=== PATIENT | female | born 1950 | race Caucasian/White ===

== ENCOUNTER 2017-09-29 16:20 | Day surgery (SDC) | payer MEDICARE ==
[~2017-09-29] VITALS: Ht 172.7 cm; Wt 89.4 kg
--- OUTSIDE RECORDS SUMMARY | 2017-09-29 16:24 | XMS REPORT ---
Author Author AVTAR PIÑA Organization [facility] Address [address] [place] [address] Care Team Providers Care Supervisor Wound Name Role Phone AVTAR PIÑA Unavailable PROBLEMS Unknown Problems ALLERGIES No Information ENCOUNTERS Encounter Location Date Diagnosis [facility] [address] [facility] [id number], [place] [address] Dec, 2016 Breast cancer screening Z12.31 [facility] [address] [facility] [id number], [place] [address] Dec, Weakness R53.1 ; History of Lyme disease Z86.19 and Routine adult health maintenance Z00.00 IMMUNIZATIONS No Known Immunizations SOCIAL HISTORY Never Assessed REASON FOR VISIT Dizziness, wanting to get blood work done, swollen place under right armpit--Patricio Montiel MA PLAN OF CARE Activity Details Follow Up prn Reason: VITAL SIGNS Height 68 in 2017-01-15 Weight 204.8 lbs 2017-01-15 Temperature 98.8 degrees Fahrenheit 2017-01-15 Heart Rate 90 bpm 2017-01-15 Respiratory Rate 18 2017-01-15 BMI 31.14 kg/m2 2017-01-15 Blood pressure systolic 142 mmHg 2017-01-15 Blood pressure diastolic 90 mmHg 2017-01-15 MEDICATIONS Medication Instructions Dosage Frequency Start Date End Date Duration Status Hydrocodone-Acetaminophen 5-325 MG Orally every 6 hrs 1 tablet as needed 6h Active Clarithromycin 500 MG Orally every 12 hrs 1 tablet 12h Active RESULTS Name Result Date Reference Range CBC 2017-01-15 WBC 6.1 3.4-10.8 RBC 4.55 3.77-5.28 Hemoglobin 14.3 11.1-15.9 Hematocrit 42.4 34.0-46.6 MCV 93 79-97 MCH 31.4 26.6-33.0 MCHC 33.7 31.5-35.7 RDW 13.9 12.3-15.4 Platelets 285 150-379 Neutrophils 65 Not Estab. Lymphs 23 Not Estab. Monocytes 9 Not Estab. Eos 2 Not Estab. Basos 1 Not Estab. Neutrophils (Absolute) 3.9 1.4-7.0 Lymphs (Absolute) 1.4 0.7-3.1 Monocytes(Absolute) 0.6 0.1-0.9 Eos (Absolute) 0.1 0.0-0.4 Baso (Absolute) 0.1 0.0-0.2 Immature Granulocytes 0 Not Estab. Immature Grans (Abs) 0.0 0.0-0.1 CMP 2017-01-15 Glucose, Serum 86 65-99 BUN 11 8-27 Creatinine, Serum 0.70 0.57-1.00 eGFR If NonAfricn Am 91 >59 eGFR If Africn Am 105 >59 BUN/Creatinine Ratio 16 12-28 Sodium, Serum 144 134-144 Potassium, Serum 4.2 3.5-5.2 Chloride, Serum 101 96-106 Carbon Dioxide, Total 26 18-29 Calcium, Serum 9.9 8.7-10.3 Protein, Total, Serum 6.7 6.0-8.5 Albumin, Serum 4.3 3.6-4.8 Globulin, Total 2.4 1.5-4.5 A/G Ratio 1.8 1.2-2.2 Bilirubin, Total 0.4 0.0-1.2 Alkaline Phosphatase, S 115 39-117 AST (SGOT) 21 0-40 ALT (SGPT) 16 0-32 CRP 2017-01-15 C-Reactive Protein, Quant 16.6 0.0-4.9 PROCEDURES Procedure Date Ordered Result Body Site LAB NOT BILLED BY [employer] Jan 15, 2017 VENIPUNCT, ROUTINE* Jan 15, 2017 [facility] VISIT NEW PATIENT Jan 15, 2017 INSTRUCTIONS MEDICATIONS ADMINISTERED No Known Medications MEDICAL (GENERAL) HISTORY Type Description Date Medical History Lyme disease
[2017-09-29 16:30] VITALS: BP 189/103
--- NOTE | 2017-09-29 16:55 | History & Physical-Surgical ---
History of Present Illness History of Present Illness Reason for visit/HPI I was called by ER, regarding a pt who was at the [facility] Urgent care. Pt had CT read by the radiologist as Acute Appendicitis. I agreed to direct admit pt as a [facility] pt. HPI: Pt states yesterday after eating she was lying on the couch and all of a sudden felt a pain in the RLQ; "felt like I got kicked". She states the pain stayed in same spot and today it is radiating to the back. Pt has never had pain like this before; laying still helped and moving made pain worse. Pt describes pain as 6-7 out of 10 on a 1-10 scale. Sharp, constant stabbing pain. She has not eaten anything since last night. Date of Admission 09/29/2017 Time Seen by Provider: 16:31 I consulted on this patient on 09/29/17 16:49 Attending Physician Elder Jerome DO Admitting Physician No,Local Physician Consult Allergies and Home Medications Allergies Coded Allergies: Adhesive Tape (Verified Allergy, Mild, 09/29/17) Uncoded Allergies: contrast dye (Allergy, Mild, 09/29/17) Patient Home Medication List Home Medication List Reviewed: Yes (Pt states she does not take any meds except for vitamins) Past Idyzmtg-Cddmkt-Vzpurc Hx Patient Social History Alcohol Use: Denies Use Recreational Drug Use: No Smoking Status: Never a Smoker Recent Foreign Travel: No Contact w/Someone Who Travel: No Recent Infectious Disease Expo: No Seasonal Allergies Seasonal Allergies: No Surgeries Surgeries: Abdominal (Laparoscopic) Respiratory History of Respiratory Disorde: No (but has trouble with cologne or cleaning products aggravating her breathing) Cardiovascular History of Cardiac Disorders: No Neurological History of Neurological Disord: Yes (Lyme disease has caused some neurologic symptoms and she has to walk with cane) Neurological Disorders: Neuropathy Reproductive System : No Genitourinary History of Genitourinary Disor: No Gastrointestinal History of Gastrointestinal Di: No Musculoskeletal History of Musculoskeletal Dis: Yes Musculoskeletal Disorders: Fibromyalgia Endocrine History of Endocrine Disorders: No HEENT History of HEENT Disorders: No Loss of Vision: Denies Hearing Impairment: Denies Cancer History of Cancer: No Psychosocial History of Psychiatric Problem: No Integumentary History of Skin or Integumenta: No Blood Transfusions History of Blood Disorders: No Family Medical History Significant Family History: CAD Under 55 Years Old, Hypertension Constitutional: chills; No diaphoresis; weakness EENTM: No blurred vision, No double vision, No mouth pain, No mouth swelling, No throat swelling Respiratory: No cough, No dyspnea on exertion Cardiovascular: No chest pain, No edema, No palpitations Gastrointestinal: RLQ; No hematemesis; loss of appetite; No nausea, No vomiting Genitourinary: No dysuria, No frequency, No hematuria Musculoskeletal: joint pain, joint swelling, muscle pain, muscle stiffness, muscle cramps, muscle weakness Skin: No change in color, No change in hair/nails Psychiatric/Neurological: Denies Anxiety, Denies Depressed, Denies Headache, Denies Seizure pt denies any abnormal bruising or bleeding, no heat or cold intolerance Physical Exam Vital Signs Capillary Refill : Height, Weight, BMI Height: ', " Weight: lbs oz, kg Method: ,BMI General Appearance: WD/WN, Mild Distress Eyes: Bilateral Eye PERRL, Bilateral Eye EOMI HEENT: Pharynx Normal, Moist Mucous Membranes; No Pale Conjunctivae (L), No Pale Conjunctivae (R), No Pharyngeal Erythema, No Scleral Icterus (L), No Scleral Icterus (R) Neck: Full Range of Motion, Normal Inspection, Non Tender, Supple Respiratory: Chest Non Tender, Lungs Clear, Normal Breath Sounds, No Accessory Muscle Use, No Respiratory Distress Cardiovascular: Regular Rate, Rhythm, No Edema, No Murmur, Normal Peripheral Pulses Gastrointestinal: Normal Bowel Sounds, No Organomegaly, Soft, Guarding (RLQ); No Mass Rectal: Deferred Back: No CVA Tenderness, No Vertebral Tenderness Extremity: Normal Capillary Refill, Normal Inspection, Normal Range of Motion, Non Tender, No Calf Tenderness Neurologic/Psychiatric: Alert, Oriented x3, Normal 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 Discussed the procedure with pt and her family; risks and complications not limited to pain, bleeding, infection, scar, damage to bowel, need for open procedure or other procedure. All questions answered to her satisfaction. I needed to consult on this pt before going to OR to assess her ability to go to the OR and to explain my plan and risks prior to her aggreeing to surgery. ELDER JEROME DO Sep 29, 2017 16:55
[2017-09-29] MEDS ORDERED: fentaNYL INJECTION 100 MCG/2 ML AMP ONE (16:59)
[2017-09-29] MEDS ORDERED: MIDAZOLAM 2 MG/2 ML (VERSED) VIAL ONE (16:59)
[2017-09-29] MEDS ORDERED: LACTATED RINGERS 1,000 ML IV ONE (17:03)
[2017-09-29] MEDS ORDERED: ONDANSETRON 4 MG/2 ML (SDV) Z0FRAN ONE ×2 (17:07→17:50)
[2017-09-29] MEDS ORDERED: LIDOCAINE PF 2% 5 ML (XYLOCAINE) VIAL ONE (17:07)
[2017-09-29] MEDS ORDERED: SEVOFLURANE (ULTANE) 15 ML INHAL SOLN ONE (17:07)
[2017-09-29] MEDS ORDERED: DEXAMETHASONE 10 MG/ML (DECADRON) 1 ML VIAL ONE (17:07)
[2017-09-29] MEDS ORDERED: ROCURONIUM 10 MG/ML 5 ML SYRINGE IV ONE (17:07)
[2017-09-29] MEDS ORDERED: proPOfol 200 MG/20 ML (DIPRIVAN) VIAL IV ONE (17:07)
[2017-09-29] MEDS ORDERED: LIDOCAINE/EPI 1%-1:200,000 (XYLOCAINE) 10 ML VIAL ONE (17:13)
[2017-09-29] MEDS ORDERED: ceFAZolin 2 GM IV Premixed 50 ML IV ONE (17:15)
[2017-09-29] MEDS ORDERED: ceFAZolin 1,000 MG (ANCEF) VIAL ONE (17:16)
[2017-09-29] MEDS ORDERED: LACTATED RINGERS 1,000 ML IV PRN (17:34)
[2017-09-29] MEDS ORDERED: NEOSTIGMINE 1 MG/ML 5 ML SYRINGE ONE (17:40)
[2017-09-29] MEDS ORDERED: GLYCOPYRROLATE 0.2 MG/ML (ROBINUL) 2 ML VIAL ONE (17:40)
[2017-09-29] MEDS ORDERED: ONDANSETRON 4 MG/2 ML (SDV) Z0FRAN IVP PRN (17:45)
[2017-09-29] MEDS ORDERED: HYDROmorphone 1 MG/ML (DILAUDID) 1 ML SYRINGE IV PRN (17:45)
[2017-09-29] MEDS ORDERED: morphine INJ 10 MG/ML 1ML (SYR OR VIAL) IVP PRN (17:45)
[2017-09-29] MEDS ORDERED: morphine INJ 10 MG/ML 1ML (SYR OR VIAL) ONE (17:50)
--- NOTE | 2017-09-29 17:51 | Progress Note-Post Operative ---
Post-Operative Progess Note Surgeon (s)/Maintenance Shop Welder (s) Surgeon SEFERINO BULLARD DO Maintenance Shop Welder: none Pre-Operative Diagnosis acute appy Post-Operative Diagnosis same Procedure & Operative Findings Date of Procedure 09/29/17 Procedure Performed/Findings lap appy Anesthesia Type GET Estimated Blood Loss Estimated blood loss (mL): scant Specimens/Packing Specimens Removed appy fibrinous material SEFERINO BULLARD DO Sep 29, 2017 17:51
[2017-09-29] MEDS ORDERED: ACHD5005 PO (17:52)
--- NOTE | 2017-09-29 17:54 | Discharge Inst-Surgical ---
Discharge Inst-Surgical Depart Medication/Instructions New, Converted or Re-Newed RX: RX Given to Pt/Family Patient Instructions Follow up Appt: Make appointment for 1 week. [phone] Instructions: No lifting greater than 10 pounds. No strenuous activity. May shower in 24 hours, no tub bath or soaking. Use incentive spirometer at home as directed. No Smoking Skin/Wound Care: May remove bandages. You need to leave the Dermabond on over incision it will fall off on its own. Symptoms to Report: -Appetite Changes, Extremity Discoloration, Numbness/Tingling, Swelling Increased, Bleeding Excessive, Eyesight Changes, Pain Increased, Urine Color Change, Constipation(Persistent), Fever over 101 degree F, Pain/Pressure in chest, Urinating Difficulty, Cough Up/Vomit Blood, Heart Beat Irreg/Pounding, Pain/Pressure in jaw, Vaginal Bleeding Increase, Cramps in feet or legs, Lightheadedness, Pain/Pressure in shoulder, Diarrhea(Persistent), Memory Changes Suddenly, Questions/Concerns, Weight gain consecutive days, Dizziness/ Fainting, Nausea/Vomiting, Shortness of Breath, Weight gain over 2 pounds If questions or concerns contact your physician Or seek help at emergency department. Activity Activity as Tolerated: Yes Walking Assistive Device: Cane Activity Instructions: Avoid Stress to Incision Driving Instructions: No Driving/Refer to Dr. Crane Discharge Diet: No Restrictions Diet After 24 Hours: Clear Liquid if Nauseous If Any Problems/Questions/Issu: Contact Your Physician, Go to Emergency Room Skin/Wound Care Infection Signs and Symptoms: Increased Redness, Foul Odor of Wound, Increased Drainage, Skin Itchy or Has a Rash, Increased Swelling, Temperature Above 101 F Wound Care Comment: heating pad to shoulder or neck tonight for pain Bathing Instructions: Shower Stitches/Juan/Dermabond Dis: Dermabond Ice Pack: Ice On and Off Site (as needed for pain) SEFERINO BULLARD DO Sep 29, 2017 17:54
--- NOTE | 2017-09-29 18:32 | OPERATIVE REPORT ---
DATE OF SERVICE: PREOPERATIVE DIAGNOSIS: Acute appendicitis. POSTOPERATIVE DIAGNOSIS: Acute appendicitis. PROCEDURE: Laparoscopic appendectomy. SURGEON: Elder Jerome DO. ABRASIVE WATER JET CUTTER OPERATOR: None. ANESTHESIA: General endotracheal tube. SPECIMEN: Appendix. BLOOD LOSS: Scant. FLUIDS: Per anesthesia. POSTOPERATIVE CONDITION: Stable. INDICATION FOR PROCEDURE: The patient is a 67-year-old female who has a right lower quadrant pain and urgent care sent her for a CAT scan, which was read as acute appendicitis. FINDINGS: The patient had acute appendicitis with inflammation to the large intestine, but otherwise, looked good, possibly microperforation. There is also some necrotic appendix, but denies any purulent fluid. There was some fibrinous material, which was also sent for pathology. PROCEDURE NOTE: After informed consent was obtained, the patient was brought to the operating room, placed on the operating table in supine position. She was sterilely prepped and draped in normal fashion. Local lidocaine was used to infiltrate the skin above the umbilicus and made incision with #11 blade, carried down through skin and subcutaneous tissue, then deepened down to subcutaneous tissue with Bovie electrocautery down to the fascia. Fascia was incised with Bovie electrocautery and bluntly entered the abdomen, swept a finger around, placed 0 Vicryl [id number] suture, then placed 11 mm trocar port under direct visualization. Created pneumoperitoneum and then placed 2 more ports in normal fashion using local lidocaine, 11 blade for stab incision and the VersaStep system, all done under direct visualization, one suprapubically and one in the left lower quadrant. The patient then placed slightly Trendelenburg and rotated left. Upon entry, noted a lot of inflammation and erythema in the right lower quadrant around the cecum and terminal ileum. Able to grasp this area. Started pushing things around and then we pulled the appendix off of the cecum. One area was like almost necrotic black tissue, but did not look like it perforated, able to start coming across the mesoappendix with LigaSure, clamping, coagulating and transecting until the appendix was attached only to the cecum, then switched to a 5 mm camera, placed Endo-GIANLUCA into the abdomen, placed across the base of appendix, clamped and fired, thereby transecting the appendix, placed a bag in the abdomen, placed the appendix in the bag and removed through the supraumbilical incision. Placed the port back in the abdomen, copiously irrigated with normal saline, suctioned this out, looked around, no obvious pathology, no purulent fluid. Took a picture of the gallbladder as well as the right ovary and uterus, could not see left ovary and then elected to place the patient in supine, removed all ports under direct visualization, allowed pneumoperitoneum to escape, closed supraumbilical incision, closed the fascia with 0 Vicryl suture previously placed. Copiously irrigated all incisions with normal saline, closing the 2 small 5 mm incisions with a single interrupted 4-0 undyed Monocryl subcuticular stitch, closed supraumbilical incision with 3 interrupted 4-0 undyed Monocryl subcuticular stitch. Area was cleaned and dried. Dermabond was placed as well as Band-Aids. The patient was then transferred to recovery room in stable condition. Sponge, instrument and needle counts were correct at the end of the case. Job ID: [id number] DocumentID: [id number] Dictated Date: 09/29/2017 18:05:37 Software Validation Technician Date: 09/29/2017 18:31:22 Dictated By: DO MEGAN MILLER
[2017-09-29 19:00] VITALS: BP 145/72
[2017-09-29 21:45] VITALS: BP 143/74
--- NOTE | 2017-09-30 16:26 | Anesthesia-General Post-Op ---
General Patient Condition Mental Status/LOC: Same as Preop Cardiovascular: Satisfactory Nausea/Vomiting: Absent Respiratory: Satisfactory Pain: Controlled Complications: Absent Post Op Complications Complications None Follow Up Care/Instructions Patient Instructions None needed. Anesthesia/Patient Condition Patient Condition Patient is doing well, no complaints, stable vital signs, no apparent adverse anesthesia problems. No complications reported per nursing. ANDREW GRIFFITH CRNA Sep 30, 2017 16:26
== END 2017-09-29 21:50 | disposition home or self-care (01) ==
LOC: SDC 16:20 → 4TH 16:38 → SDC 21:50
PROVIDERS: ATTEND Surgery
DX: K35.80 Unspecified acute appendicitis (principal)
CPT/HCPCS: 87070; 87075; 87205; 94664

== ENCOUNTER → 2017-09-29 | Outpatient (CLI) | payer MEDICARE ==
[~2017-09-29] MED LIST: ACHD5005 PO
--- NOTE | 2017-09-29 15:01 | Diagnostic Imaging Report ---
PROCEDURE: CT abdomen and pelvis without contrast. TECHNIQUE: Multiple contiguous axial images were obtained through the abdomen and pelvis without the use of intravenous contrast. DATE: September 29, 2017. COMPARISON: None. INDICATION: 67-year-old female, right lower quadrant pain. FINDINGS: There are limitations for evaluation of the abdominal organs, neoplastic processes, abscess, and limited evaluation of the vasculature relating to the lack of intravenous contrast. The visualized portions of the lung bases are clear. The heart is not enlarged. There is no pericardial effusion. The liver is normal in size and contour. There is cholelithiasis without evidence of acute cholecystitis. There is no intrahepatic or extrahepatic bile duct dilation. The main pancreatic duct is not abnormally dilated. Unremarkable noncontrast appearance of the pancreatic parenchyma. The spleen is normal in size. The adrenal glands are unremarkable. Unremarkable appearance of the renal parenchyma. The urinary collecting systems are not distended. There is no identified renal or ureteral stone. The urinary bladder is underdistended and not well evaluated. There is wall thickening and inflammatory stranding at the level of the lower cecum. The appendix is abnormally dilated with prominent adjacent abnormal inflammatory stranding compatible with acute appendicitis. The intestinal tract is otherwise not distended. There is no free intraperitoneal air. There is no drainable fluid collection. There is no free pelvic fluid. There are atherosclerotic calcifications. There is no identified abnormally enlarged lymph node within the abdomen or pelvis, which meets CT size criteria for adenopathy. There is no identified acute bony abnormality. IMPRESSION: CT ABDOMEN AND PELVIS. 1. Findings compatible with acute appendicitis without evidence of perforation or abscess. There is wall thickening and inflammatory stranding at the level of the lower cecum, which likely relates to the adjacent appendiceal process. 2. Cholelithiasis without evidence of acute cholecystitis. Dictated by: Dictated on workstation # [id number]
== END ==
LOC: RAD 14:29
PROVIDERS: ATTEND Nurse Practitioner Family
DX: K80.20 Calculus of gallbladder without cholecystitis without obstruction (principal); R79.82 Elevated C-reactive protein (CRP); D72.828 Other elevated white blood cell count
CPT/HCPCS: 74176

== ENCOUNTER → 2017-09-29 | Outpatient (CLI) | payer MEDICARE ==
[2017-09-29 12:12] LABS: BASOPHILS % (AUTO) 0 % (0-10); EOSINOPHILS % (AUTO) 0 % (0-10); HEMATOCRIT 41 % (35-52); HEMOGLOBIN 13.6 G/DL (11.5-16.0); LYMPHOCYTES # (AUTO) 1.1 X 10^3 (1.0-4.0); LYMPHOCYTES % (AUTO) 11 % (12-44); MEAN CORPUSCULAR HEMOGLOBIN 32 PG (25-34); MEAN CORPUSCULAR HGB CONC 33 G/DL (32-36); MEAN CORPUSCULAR VOLUME 96 FL (80-99); MEAN PLATELET VOLUME 9.8 FL (7.4-10.4); MONOCYTES # (AUTO) 0.6 X 10^3 (0.0-1.0); MONOCYTES % (AUTO) 6 % (0-12); NEUTROPHILS # (AUTO) 8.4 X 10^3 (1.8-7.8); NEUTROPHILS % (AUTO) 83 % (42-75); PLATELET COUNT 247 10^3/uL (130-400); WHITE BLOOD COUNT 10.2 10^3/uL (4.3-11.0)
[2017-09-29 12:28] LABS: ALANINE AMINOTRANSFERASE 21 U/L (0-55); ALBUMIN 4.1 GM/DL (3.2-4.5); ALKALINE PHOSPHATASE 110 U/L (40-136); BILIRUBIN,TOTAL 0.7 MG/DL (0.1-1.0); BUN/CREATININE RATIO 14; CALCIUM 9.4 MG/DL (8.5-10.1); CARBON DIOXIDE 25 MMOL/L (21-32); CHLORIDE 106 MMOL/L (98-107); CREATININE SERUM 0.79 MG/DL (0.60-1.30); GFR ESTIMATED > 60; GLUCOSE 114 MG/DL (70-105); POTASSIUM 3.6 MMOL/L (3.6-5.0); SODIUM 142 MMOL/L (135-145); TOTAL PROTEIN 6.7 GM/DL (6.4-8.2)
== END ==
LOC: LAB 11:45
PROVIDERS: ATTEND Nurse Practitioner Family
DX: R10.31 Right lower quadrant pain (principal)
CPT/HCPCS: 36415; 80053; 85025; 86141

== ENCOUNTER → 2019-09-18 | Outpatient (CLI) | payer MEDICARE ==
[2019-09-18 17:50] LABS: BASOPHILS % (AUTO) 1 % (0-10); EOSINOPHILS % (AUTO) 1 % (0-10); HEMATOCRIT 42 % (35-52); HEMOGLOBIN 13.6 G/DL (11.5-16.0); LYMPHOCYTES # (AUTO) 1.8 X 10^3 (1.0-4.0); LYMPHOCYTES % (AUTO) 27 % (12-44); MEAN CORPUSCULAR HEMOGLOBIN 32 PG (25-34); MEAN CORPUSCULAR HGB CONC 33 G/DL (32-36); MEAN CORPUSCULAR VOLUME 98 FL (80-99); MEAN PLATELET VOLUME 10.2 FL (7.4-10.4); MONOCYTES # (AUTO) 0.4 X 10^3 (0.0-1.0); MONOCYTES % (AUTO) 6 % (0-12); NEUTROPHILS # (AUTO) 4.3 X 10^3 (1.8-7.8); NEUTROPHILS % (AUTO) 65 % (42-75); PLATELET COUNT 262 10^3/uL (130-400); RED CELL DISTRIBUTION WIDTH 12.9 % (10.0-14.5); WHITE BLOOD COUNT 6.6 10^3/uL (4.3-11.0)
[2019-09-18 18:03] LABS: ALBUMIN 4.2 GM/DL (3.2-4.5); CHLORIDE 105 MMOL/L (98-107); POTASSIUM 3.8 MMOL/L (3.6-5.0); SODIUM 141 MMOL/L (135-145)
[2019-09-18 18:05] LABS: GLUCOSE 92 MG/DL (70-105); TOTAL PROTEIN 7.3 GM/DL (6.4-8.2)
[2019-09-18 18:06] LABS: CARBON DIOXIDE 25 MMOL/L (21-32)
[2019-09-18 18:07] LABS: BILIRUBIN,TOTAL 0.4 MG/DL (0.1-1.0)
[2019-09-18 18:09] LABS: ALKALINE PHOSPHATASE 133 U/L (40-136); CREATININE SERUM 0.82 MG/DL (0.60-1.30); GFR ESTIMATED > 60
[2019-09-18 18:10] LABS: BUN/CREATININE RATIO 12
[2019-09-18 18:12] LABS: ALANINE AMINOTRANSFERASE 13 U/L (0-55)
== END ==
LOC: LAB 17:30
PROVIDERS: ATTEND Family Medicine
DX: R53.83 Other fatigue (principal)
CPT/HCPCS: 36415; 80053; 84439; 84443; 85025

== ENCOUNTER 2021-10-24 09:04 | Emergency (ER) | payer MEDICARE ==
[~2021-10-24] VITALS: Ht 172 cm; Wt 68.9 kg
--- NOTE | 2021-10-24 09:29 | ED General ---
General Chief Complaint: Dizziness/Syncope Stated Complaint: DIZZY - WEAKNESS Source of Information: Patient Exam Limitations: No Limitations History of Present Illness Date Seen by Provider: Oct 24, 2021 Time Seen by Provider: 09:11 Initial Comments Patient is a 71-year-old female who presents to the emergency department today with a chief complaint of dizziness, nausea and vomiting. Patient states that she had an episode of dizziness 2 or 3 weeks ago, she went and had a "cervical adjustment" and that seems to have fixed her dizziness. She states on Sunday she had a return of symptoms. She has been pretty much at rest over the weekend until this morning when she woke up "walking into [place]" and with severe nausea and vomiting. She denies headache. She states over the course of the last several weeks she is had some increasing blurry vision where she feels like her glasses are not working correctly at night and her vision is "off". She denies double vision. No loss of vision. She denies any recent trauma or illness. She has been fighting a tooth infection for quite a while off and on antibiotics. She does not currently have a dentist. She has not taken anything for the dizziness or the nausea and vomiting. No abdominal pain. She has had a little dysuria this morning. No numbness tingling or weakness in her extremities. All other review of systems reviewed and negative except as stated. Timing/Duration: 2-3 Days Severity: Moderate Associated Systoms: Nausea/Vomiting Allergies and Home Medications Allergies Coded Allergies: adhesive tape (Verified Allergy, Mild, 09/29/17) Latex, Natural Rubber (Verified Allergy, Unknown, 09/29/17) Uncoded Allergies: contrast dye (Allergy, Mild, 09/29/17) Patient Home Medication List Home Medication List Reviewed: Yes Hydrocodone Bit/Acetaminophen (Lortab 5 Mg Tablet) 1 Tab Tab, 1 TAB PO Q6H PRN Prescribed by: SEFERINO BULLARD on 09/29/17 2793 Review of Systems Review of Systems Constitutional: see HPI, malaise EENTM: no symptoms reported Respiratory: no symptoms reported Cardiovascular: no symptoms reported Gastrointestinal: nausea, vomiting Genitourinary: dysuria : No Musculoskeletal: no symptoms reported Skin: no symptoms reported Psychiatric/Neurological: Other (dizziness) All Other Systems Reviewed Negative Unless Noted: Yes Past Xcimilt-Auvzbx-Rmpcyz Hx Immunizations Up To Date Tetanus Booster (TDap): Unknown PED Vaccines UTD: Yes Seasonal Allergies Seasonal Allergies: No Past Medical History Abdominal Respiratory: No (but has trouble with cologne or cleaning products aggravating her breathing) Cardiac: No Neurological: Yes Neuropathy Reproductive Disorders: No Female Reproductive Disorders: Denies Sexually Transmitted Disease: No HIV/AIDS: No Genitourinary: No UTI-Chronic Gastrointestinal: No Musculoskeletal: Yes Fibromyalgia Endocrine: No HEENT: No Loss of Vision: Denies Hearing Impairment: Denies Cancer: No Psychosocial: No Integumentary: No Blood Disorders: No Family Medical History CAD Under 55 Years Old, Hypertension Physical Exam Vital Signs Vital Signs - First Documented 10/24/21 09:07 Temp 36.7 Pulse 79 Resp 12 B/P (MAP) 153/86 (108) Pulse Ox 98 O2 Delivery Room Air Capillary Refill : Height, Weight, BMI Height: 5'8.00" Weight: 197lbs. 0.0oz. 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 She did have some worsening dizziness with laying supine) Skin: Normal Color, Warm/Dry Progress/Results/Core Measures Suspected Sepsis SIRS Temperature: Pulse: Respiratory Rate: Laboratory Tests 10/24/21 09:15: White Blood Count 10.5 Blood Pressure / Mean: Laboratory Tests 10/24/21 09:15: Creatinine 0.69, Platelet Count 219 Results/Orders Lab Results Laboratory Tests Test 10/24/21 09:15 10/24/21 10:28 Range/Units White Blood Count 10.5 4.3-11.0 10^3/uL Red Blood Count 4.30 3.80-5.11 10^6/uL Hemoglobin 14.2 11.5-16.0 g/dL Hematocrit 43 35-52 % Mean Corpuscular Volume 100 H 80-99 fL Mean Corpuscular Hemoglobin 33 25-34 pg Mean Corpuscular Hemoglobin Concent 33 32-36 g/dL Red Cell Distribution Width 14.7 H 10.0-14.5 % Platelet Count 219 130-400 10^3/uL Mean Platelet Volume 10.6 9.0-12.2 fL Immature Granulocyte % (Auto) 1 % Neutrophils (%) (Auto) 94 H 42-75 % Lymphocytes (%) (Auto) 5 L 12-44 % Monocytes (%) (Auto) 1 0-12 % Eosinophils (%) (Auto) 0 0-10 % Basophils (%) (Auto) 0 0-10 % Neutrophils # (Auto) 9.8 H 1.8-7.8 10^3/uL Lymphocytes # (Auto) 0.5 L 1.0-4.0 10^3/uL Monocytes # (Auto) 0.1 0.0-1.0 10^3/uL Eosinophils # (Auto) 0.0 0.0-0.3 10^3/uL Basophils # (Auto) 0.0 0.0-0.1 10^3/uL Immature Granulocyte # (Auto) 0.1 0.0-0.1 10^3/uL Neutrophils % (Manual) 91 % Lymphocytes % (Manual) 6 % Monocytes % (Manual) 1 % Band Neutrophils 2 % Blood Morphology Comment NORMAL Sodium Level 141 135-145 MMOL/L Potassium Level 3.8 3.6-5.0 MMOL/L Chloride Level 101 98-107 MMOL/L Carbon Dioxide Level 21 21-32 MMOL/L Anion Gap 19 H 5-14 MMOL/L Blood Urea Nitrogen 17 7-18 MG/DL Creatinine 0.69 0.60-1.30 MG/DL Estimat Glomerular Filtration Rate 93 BUN/Creatinine Ratio 25 Glucose Level 143 H 70-105 MG/DL Calcium Level 9.8 8.5-10.1 MG/DL Urine Color YELLOW Urine Clarity CLEAR Urine pH 6.0 5-9 Urine Specific [place]inosaur >=1.030 1.016-1.022 Urine Protein 1+ H NEGATIVE Urine Glucose (UA) NEGATIVE NEGATIVE Urine Ketones 3+ H NEGATIVE Urine Nitrite NEGATIVE NEGATIVE Urine Bilirubin NEGATIVE NEGATIVE Urine Urobilinogen 0.2 < = 1.0 MG/DL Urine Leukocyte Esterase NEGATIVE NEGATIVE Urine RBC (Auto) NEGATIVE NEGATIVE Urine RBC 0-2 /HPF Urine WBC 2-5 /HPF Urine Squamous Epithelial Cells 2-5 /HPF Urine Crystals PRESENT H /LPF Urine Amorphous Sediment FEW BONNY URATES H /LPF Urine Bacteria FEW H /HPF Urine Casts PRESENT /LPF Urine Hyaline Casts RARE /LPF Urine Mucus SMALL H /LPF Urine Culture Indicated YES My Orders Orders - CASE NEWMAN MD Ct Head Wo (10/24/21 09:23) Ed Iv/Invasive Line Start (10/24/21 09:23) Cbc With Automated Diff (10/24/21 09:23) Basic Metabolic Panel (10/24/21 09:23) Ns Iv 1000 Ml (Sodium Chloride 0.9%) (10/24/21 09:30) Ondansetron Injection (Zofran Injectio (10/24/21 09:30) Ua Culture If Indicated (10/24/21 09:30) Manual Differential (10/24/21 09:15) Urine Culture (10/24/21 10:28) Ns Iv 1000 Ml (Sodium Chloride 0.9%) (10/24/21 12:00) Meclizine Tablet (Antivert Tablet) (10/24/21 12:00) Metoclopramide Injection (Reglan Injecti (10/24/21 12:00) Diphenhydramine Injection (Benadryl Inje (10/24/21 12:00) Medications Given in ED Current Medications Medications Dose Ordered Sig/Yvon Route Start Time Stop Time Status Last Admin Dose Admin Diphenhydramine HCl 25 mg ONCE ONCE IVP 10/24/21 12:00 10/24/21 12:01 DC 10/24/21 12:42 25 MG Meclizine HCl 25 mg ONCE ONCE PO 10/24/21 12:00 10/24/21 12:01 DC 10/24/21 12:41 25 MG Metoclopramide HCl 5 mg ONCE ONCE IVP 10/24/21 12:00 10/24/21 12:01 DC 10/24/21 12:43 5 MG Ondansetron HCl 8 mg ONCE ONCE IVP 10/24/21 09:30 10/24/21 09:31 DC 10/24/21 09:37 8 MG Vital Signs/I&O 10/24/21 09:07 Temp 36.7 Pulse 79 Resp 12 B/P (MAP) 153/86 (108) Pulse Ox 98 O2 Delivery Room Air Capillary Refill : Progress Note #1: Time: 11:55 Progress Note Patient rechecked, she still feels quite nauseous. She feels like her dizziness is a "side to side" sensation. I reviewed labs with her as well as CT results. She is happy and pleased with the CT results. I did let her know that her urine was quite concentrated with a little bit of bacteria, I am going to go ahead and send her prescription for Keflex to [facility]. She has a little bit of a left shift with a normal total white blood cell count. She is not anemic. Her electrolytes are normal. I do suspect just a benign positional vertigo at this point. I am giving her meclizine as well as some more fluids. Anticipate being able to discharge her to home today with follow-up with her primary care physician. Progress Note #2: Time: 13:15 Progress Note Patient did get quite sleepy after Reglan and Phenergan at 5 mg and 12.5 mg respectively. She does feel much better her nausea is controlled. Her dizziness is better. I advised her that I would send her prescriptions for urinary tract infection as well as the meclizine and some Zofran. I have discussed return precautions with her to include worsening dizziness, persistent vomiting or development of a headache. She is comfortable with the plan of care. All questions are sought and answered. Diagnostic Imaging Diagonstic Imaging: CT Comments [facility] [place], [place] NAME: ANDERSON VILLAGRAN [facility] REC#: [id number] PT STATUS: REG ER : 1950 PHYSICIAN: CASE NEWMAN MD ADMIT DATE: 10/24/21/ER Draft Date of Exam:10/24/21 CT HEAD WO PROCEDURE: CT head without contrast. TECHNIQUE: Multiple contiguous axial images were obtained through the brain without the use of intravenous contrast. Auto Exposure Controls were utilized during the CT exam to meet ALARA standards for radiation dose reduction. INDICATION: Dizziness with nausea and vomiting. I have no previous. FINDINGS: Cerebral cortical volume unremarkable for age. There is no esme hydrocephalus. No hemorrhage or abnormal extra-axial fluid collections and there was no focal or generalized cerebral edema. No sulcal effacement. No loss of the cortical castro-white matter differentiations. The mastoid air cells, the orbits and the paranasal sinuses all nonacute. No findings of sinusitis. No fracture or bony destructive process. IMPRESSION: Mild chronic senescent changes. No hemorrhage, edema, sinusitis or acute abnormalities. Dictated on workstation # [id number] Dict: 10/24/21 1120 Trans: 10/24/21 1122 CV [id number] Interpreted by: DASHA ASHER Electronically signed by: Departure Impression Primary Impression: Vertigo Disposition: HOME, SELF-CARE Condition: Improved Departure-Patient Inst. Decision time for Depature: 13:16 Referrals: AFSHAN ELMORE MD (PCP/Family) Primary Care Physician Patient Instructions: Vertigo (a Type of Dizziness) (DC) Add. Discharge Instructions: Drink plenty of fluids to stay well-hydrated. You were mild to moderately dehydrated today. You have been given 2 L of IV fluids as well as meclizine for dizziness. Also Zofran for nausea as well as some Reglan and Benadryl for nausea. If you develop a headache with worsening dizziness or fever please come back to the emergency department for reevaluation. Please follow-up with your primary care physician this week. I did also send a prescription to your pharmacy for antibiotics for a urinary tract infection. You do have evidence of some bacteria in the urine. If your symptoms of burning with urination are worsening please start taking the antibiotics. Take the meclizine 1 tablet every 6 hours for the next 2 days [id number] for dizziness. Then you can take this medications as needed. Scripts Ondansetron (Ondansetron Odt) 4 Mg Tab.rapdis 4 MG PO Q8H PRN for nausea, #20 TAB Prov: CASE NEWMAN MD 10/24/21 Meclizine HCl (Meclizine HCl) 25 Mg Tablet 25 MG PO Q6H PRN for dizziness, #20 TAB Prov: CASE NEWMAN MD 10/24/21 Cephalexin (Cephalexin) 500 Mg Tablet 500 MG PO TID for 5 Days, #15 TAB Prov: CASE NEWMAN MD 10/24/21 CASE NEWMAN MD Oct 24, 2021 09:29
[2021-10-24] MEDS ORDERED: NS IV 1000 ML 1,000 ML IV SCH ×2 (09:30→12:00)
[2021-10-24] MEDS ORDERED: ONDANSETRON 4 MG/2 ML (SDV) Z0FRAN IVP ONE (09:30)
[2021-10-24 09:34] LABS: BASOPHILS % (AUTO) 0 % (0-10); EOSINOPHILS % (AUTO) 0 % (0-10); HEMATOCRIT 43 % (35-52); HEMOGLOBIN 14.2 g/dL (11.5-16.0); LYMPHOCYTES # (AUTO) 0.5 10^3/uL (1.0-4.0); LYMPHOCYTES % (AUTO) 5 % (12-44); MEAN CORPUSCULAR HEMOGLOBIN 33 pg (25-34); MEAN CORPUSCULAR HGB CONC 33 g/dL (32-36); MEAN CORPUSCULAR VOLUME 100 fL (80-99); MEAN PLATELET VOLUME 10.6 fL (9.0-12.2); MONOCYTES # (AUTO) 0.1 10^3/uL (0.0-1.0); MONOCYTES % (AUTO) 1 % (0-12); NEUTROPHILS # (AUTO) 9.8 10^3/uL (1.8-7.8); NEUTROPHILS % (AUTO) 94 % (42-75); PLATELET COUNT 219 10^3/uL (130-400); WHITE BLOOD COUNT 10.5 10^3/uL (4.3-11.0)
[2021-10-24 09:43] LABS: POTASSIUM 3.8 MMOL/L (3.6-5.0)
[2021-10-24 09:44] LABS: CALCIUM 9.8 MG/DL (8.5-10.1)
[2021-10-24 09:48] LABS: CREATININE SERUM 0.69 MG/DL (0.60-1.30)
[2021-10-24 09:51] LABS: BAND NEUTROPHILS 2 %; LYMPHOCYTES % (MANUAL) 6 %; MONOCYTES % (MANUAL) 1 %; NEUTROPHILS % (MANUAL) 91 %; RBC MORPH NORMAL
[2021-10-24 10:39] LABS: CLARITY,URINE CLEAR; COLOR,URINE YELLOW; GLUCOSE, URINE (UA) NEGATIVE (NEGATIVE); KETONES,URINE 3+ (NEGATIVE); LEUKOCYTE ESTERASE ,URINE NEGATIVE (NEGATIVE); NITRITE,URINE NEGATIVE (NEGATIVE); PROTEIN,URINE 1+ (NEGATIVE)
[2021-10-24 10:52] LABS: AMORPHOUS SEDIMENT,UR FEW AMOR URATES /LPF; BACTERIA,URINE FEW /HPF; BILIRUBIN,URINE NEGATIVE (NEGATIVE); RBC,URINE 0-2 /HPF
[2021-10-24 10:53] LABS: HYALINE CASTS, URINE RARE /LPF
--- NOTE | 2021-10-24 11:22 | Diagnostic Imaging Report ---
PROCEDURE: CT head without contrast. TECHNIQUE: Multiple contiguous axial images were obtained through the brain without the use of intravenous contrast. Auto Exposure Controls were utilized during the CT exam to meet ALARA standards for radiation dose reduction. INDICATION: Dizziness with nausea and vomiting. I have no previous. FINDINGS: Cerebral cortical volume unremarkable for age. There is no esme hydrocephalus. No hemorrhage or abnormal extra-axial fluid collections and there was no focal or generalized cerebral edema. No sulcal effacement. No loss of the cortical castro-white matter differentiations. The mastoid air cells, the orbits and the paranasal sinuses all nonacute. No findings of sinusitis. No fracture or bony destructive process. IMPRESSION: Mild chronic senescent changes. No hemorrhage, edema, sinusitis or acute abnormalities. Dictated by: Dictated on workstation # [id number]
[2021-10-24] MEDS ORDERED: MECLIZINE 25 MG (ANTIVERT) TAB PO ONE (12:00)
[2021-10-24] MEDS ORDERED: diphenhydrAMINE 50 MG/ML INJ (BENADRYL) IVP ONE (12:00)
[2021-10-24] MEDS ORDERED: METOCLOPRAMIDE INJ 10 MG/2 ML (REGLAN) IVP ONE (12:00)
[2021-10-24] MEDS ORDERED: MECL-149 PO (13:18)
[2021-10-24] MEDS ORDERED: ONDA4TAB11 PO (13:18)
[2021-10-24] MEDS ORDERED: CEPH500T PO (13:18)
[2021-10-24 13:32] VITALS: BP 151/69
== END 2021-10-24 13:32 | disposition home or self-care (01) ==
LOC: EDUNIT# 09:04 → ER 09:06
DX: R42 Dizziness and giddiness (principal); R11.2 Nausea with vomiting, unspecified; Z91.040 Latex allergy status; Z28.310 Unvaccinated for COVID-19
CPT/HCPCS: 36415; 70450; 80048; 81000; 85007; 85027; 87077; 87088

== ENCOUNTER 2021-11-23 13:36 | Emergency (ER) | payer MEDICARE ==
[~2021-11-23 13:36] MED LIST changes: +CEPH500T PO; +MECL-149 PO; +ONDA4TAB11 PO
[2021-11-23] MEDS ORDERED: ASPIRIN 81 MG CHEW (CHILDREN'S ASA) PO ONE (13:45)
[2021-11-23 13:56] LABS: BASOPHILS # (AUTO) 0.1 10^3/uL (0.0-0.1); BASOPHILS % (AUTO) 1 % (0-10); EOSINOPHILS % (AUTO) 0 % (0-10); HEMATOCRIT 41 % (35-52); HEMOGLOBIN 13.6 g/dL (11.5-16.0); LYMPHOCYTES # (AUTO) 0.9 10^3/uL (1.0-4.0); LYMPHOCYTES % (AUTO) 9 % (12-44); MEAN CORPUSCULAR HEMOGLOBIN 33 pg (25-34); MEAN CORPUSCULAR HGB CONC 33 g/dL (32-36); MEAN CORPUSCULAR VOLUME 99 fL (80-99); MEAN PLATELET VOLUME 10.1 fL (9.0-12.2); MONOCYTES # (AUTO) 0.7 10^3/uL (0.0-1.0); MONOCYTES % (AUTO) 7 % (0-12); NEUTROPHILS # (AUTO) 8.7 10^3/uL (1.8-7.8); NEUTROPHILS % (AUTO) 84 % (42-75); PLATELET COUNT 200 10^3/uL (130-400); WHITE BLOOD COUNT 10.5 10^3/uL (4.3-11.0)
[2021-11-23 14:12] LABS: ALBUMIN 4.1 GM/DL (3.2-4.5); INR 0.9 (0.8-1.4); POTASSIUM 3.8 MMOL/L (3.6-5.0)
[2021-11-23 14:13] LABS: CALCIUM 9.7 MG/DL (8.5-10.1)
[2021-11-23 14:15] LABS: TOTAL PROTEIN 6.9 GM/DL (6.4-8.2)
[2021-11-23 14:16] LABS: BILIRUBIN,URINE NEGATIVE (NEGATIVE); CLARITY,URINE CLEAR; COLOR,URINE YELLOW; GLUCOSE, URINE (UA) NEGATIVE (NEGATIVE); KETONES,URINE 1+ (NEGATIVE); LEUKOCYTE ESTERASE ,URINE TRACE (NEGATIVE); NITRITE,URINE NEGATIVE (NEGATIVE); PH,URINE 5.5 (5-9); PROTEIN,URINE NEGATIVE (NEGATIVE)
[2021-11-23 14:16] LABS: BILIRUBIN,TOTAL 0.5 MG/DL (0.1-1.0)
[2021-11-23 14:18] LABS: CREATININE SERUM 0.69 MG/DL (0.60-1.30)
--- NOTE | 2021-11-23 14:18 | Diagnostic Imaging Report ---
INDICATION: Chest pain. COMPARISON: None. FINDINGS: Frontal and lateral views of the chest demonstrate normal heart size and pulmonary vascularity. The lungs are clear. There are no signs of infiltrate, pleural effusions or pneumothoraces. The visualized osseous structures show no acute abnormalities. IMPRESSION: 1. No acute process. No signs of infiltrates, effusions or pneumothoraces. Dictated by: Dictated on workstation # [id number]
--- NOTE | 2021-11-23 14:22 | ED Chest Pain ---
General Chief Complaint: Chest Pain Stated Complaint: CHEST PAIN Nursing Triage Note: PT AMB TO RM 6 WITH C/O CP SINCE WAKING UP THIS MORNING. PT DESCRIBES PAIN PRESSURE THAT IS IN THE STERNAL AREA. PT STATES SHE TRIED TO LIE DOWN FOR A NAP THIS AFTERNOON AND LYING DOWN INCREASED THE PAIN History of Present Illness Date Seen by Provider: Nov 23, 2021 Time Seen by Provider: 13:40 Initial Comments 71 year old female with mid sternal chest pain/pressure that began at 0800 this am. She took 2 Aspirin 325 mg and CoQ10. The pain was less, unless she coughed, took a deep inspiration, or would lie down, then it hurt. NO history of CAD. Both parents had CAD and her father of [place] in 60s. She is not diabetic and denies nausea or diaphoresis. No aggressive physical activity or chest trauma. Pain is palpable, if she presses on her chest wall She is being treated with Cephalexin for right maxillary sinus infection, awaiting referral to ENT. Denies cough. Hx of Lyme's disease. 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 NTG SL COMMUNITY FUNDRAISER: No Associated Symptoms: denies symptoms Allergies and Home Medications Allergies Coded Allergies: adhesive tape (Verified Allergy, Mild, 09/29/17) Latex, Natural Rubber (Verified Allergy, Unknown, 09/29/17) Uncoded Allergies: contrast dye (Allergy, Mild, 09/29/17) Patient Home Medication List Home Medication List Reviewed: Yes Cephalexin (Cephalexin) 500 Mg Tablet, 500 MG PO TID Prescribed by: CASE NEWMAN on 10/24/21 1318 Hydrocodone Bit/Acetaminophen (Lortab 5 Mg Tablet) 1 Tab Tab, 1 TAB PO Q6H PRN Prescribed by: SEFERINO BULLARD on 09/29/17 1752 Meclizine HCl (Meclizine HCl) 25 Mg Tablet, 25 MG PO Q6H PRN for dizziness Prescribed by: CASE NEWMAN on 10/24/21 1318 Ondansetron (Ondansetron Odt) 4 Mg Tab.rapdis, 4 MG PO Q8H PRN for nausea Prescribed by: CASE NEWMAN on 10/24/21 1318 Review of Systems Review of Systems Constitutional: no symptoms reported, see HPI Respiratory: No Symptoms Reported, See HPI Cardiovascular: See HPI, Chest Pain All Other Systems Reviewed Negative Unless Noted: Yes Past Tonzgdy-Hisqay-Fnubtb Hx Patient Social History Tobacco Use?: No Use of E-Cig and/or Vaping dev: No Substance use?: No Alcohol Use?: No Pt feels they are or have been: No Immunizations Up To Date Tetanus Booster (TDap): Unknown PED Vaccines UTD: Yes Influenza Vaccine Up-to-Date: No; Not Current Seasonal Allergies Seasonal Allergies: No Past Medical History Surgery/Hospitalization HX: APPY PMH; LYME DISEASE, TINNITUS Abdominal Respiratory: No (but has trouble with cologne or cleaning products aggravating her breathing) Cardiac: No Neurological: Yes Neuropathy Reproductive Disorders: No Female Reproductive Disorders: Denies Sexually Transmitted Disease: No HIV/AIDS: No Genitourinary: No UTI-Chronic Gastrointestinal: No Musculoskeletal: Yes Fibromyalgia Endocrine: No HEENT: No Loss of Vision: Denies Hearing Impairment: Denies Cancer: No Psychosocial: No Integumentary: No Blood Disorders: No Family Medical History Reviewed Nursing Family Hx CAD Under 55 Years Old, Hypertension Physical Exam Vital Signs Vital Signs - First Documented 11/23/21 13:40 Temp 37.2 Pulse 111 Resp 18 B/P (MAP) 159/93 (115) Capillary Refill : Height, Weight, BMI Height: 5'8.00" Weight: 197lbs. 0.0oz. 89.348370mr; 23.00 BMI Method: General Appearance: No Apparent Distress, WD/WN HEENT: PERRL/EOMI, TMs Normal, Normal ENT Inspection, Pharynx Normal, Other (trace tenderness over right maxillary sinus) Neck: Full Range of Motion, Normal Inspection, Non Tender, Supple Respiratory: Lungs Clear, Normal Breath Sounds, Other (tenderness to palpation along both right and left sternal borders) Cardiovascular: Regular Rate, Rhythm, No Edema, No Murmur, Normal Peripheral Pulses, Tachycardia (98-110) Gastrointestinal: Normal Bowel Sounds, Non Tender, Soft Extremity: Normal Capillary Refill, Normal Inspection, Normal Range of Motion, Non Tender, No Calf Tenderness, No Pedal Edema Neurologic/Psychiatric: Alert, Oriented x3, No Motor/Sensory Deficits, Normal Mood/Affect Skin: Normal Color, Warm/Dry Progress/Results/Core Measures Results/Orders Lab Results Laboratory Tests Test 11/23/21 13:48 11/23/21 14:10 Range/Units White Blood Count 10.5 4.3-11.0 10^3/uL Red Blood Count 4.12 3.80-5.11 10^6/uL Hemoglobin 13.6 11.5-16.0 g/dL Hematocrit 41 35-52 % Mean Corpuscular Volume 99 80-99 fL Mean Corpuscular Hemoglobin 33 25-34 pg Mean Corpuscular Hemoglobin Concent 33 32-36 g/dL Red Cell Distribution Width 14.5 10.0-14.5 % Platelet Count 200 130-400 10^3/uL Mean Platelet Volume 10.1 9.0-12.2 fL Immature Granulocyte % (Auto) 0 % Neutrophils (%) (Auto) 84 H 42-75 % Lymphocytes (%) (Auto) 9 L 12-44 % Monocytes (%) (Auto) 7 0-12 % Eosinophils (%) (Auto) 0 0-10 % Basophils (%) (Auto) 1 0-10 % Neutrophils # (Auto) 8.7 H 1.8-7.8 10^3/uL Lymphocytes # (Auto) 0.9 L 1.0-4.0 10^3/uL Monocytes # (Auto) 0.7 0.0-1.0 10^3/uL Eosinophils # (Auto) 0.0 0.0-0.3 10^3/uL Basophils # (Auto) 0.1 0.0-0.1 10^3/uL Immature Granulocyte # (Auto) 0.0 0.0-0.1 10^3/uL Prothrombin Time 13.0 12.2-14.7 SEC INR Comment 0.9 0.8-1.4 Activated Partial Thromboplast Time 31 24-35 SEC Sodium Level 143 135-145 MMOL/L Potassium Level 3.8 3.6-5.0 MMOL/L Chloride Level 104 98-107 MMOL/L Carbon Dioxide Level 24 21-32 MMOL/L Anion Gap 15 H 5-14 MMOL/L Blood Urea Nitrogen 22 H 7-18 MG/DL Creatinine 0.69 0.60-1.30 MG/DL Estimat Glomerular Filtration Rate 93 BUN/Creatinine Ratio 32 Glucose Level 114 H 70-105 MG/DL Calcium Level 9.7 8.5-10.1 MG/DL Corrected Calcium 9.6 8.5-10.1 MG/DL Magnesium Level 2.0 1.6-2.4 MG/DL Total Bilirubin 0.5 0.1-1.0 MG/DL Aspartate Amino Transf (AST/SGOT) 31 5-34 U/L Alanine Aminotransferase (ALT/SGPT) 30 0-55 U/L Alkaline Phosphatase 113 40-136 U/L Myoglobin 33.2 10.0-92.0 NG/ML Troponin I < 0.028 <0.028 NG/ML B-Type Natriuretic Peptide 29.0 <100.0 PG/ML Total Protein 6.9 6.4-8.2 GM/DL Albumin 4.1 3.2-4.5 GM/DL Urine Color YELLOW Urine Clarity CLEAR Urine pH 5.5 5-9 Urine Specific [place] >=1.030 1.016-1.022 Urine Protein NEGATIVE NEGATIVE Urine Glucose (UA) NEGATIVE NEGATIVE Urine Ketones 1+ H NEGATIVE Urine Nitrite NEGATIVE NEGATIVE Urine Bilirubin NEGATIVE NEGATIVE Urine Urobilinogen 0.2 < = 1.0 MG/DL Urine Leukocyte Esterase TRACE H NEGATIVE Urine RBC (Auto) NEGATIVE NEGATIVE Urine RBC NONE /HPF Urine WBC 0-2 /HPF Urine Squamous Epithelial Cells 2-5 /HPF Urine Crystals NONE /LPF Urine Bacteria NEGATIVE /HPF Urine Casts NONE /LPF Urine Mucus NEGATIVE /LPF Urine Culture Indicated NO My Orders Orders - PREETI ANTUNEZ Cbc With Automated Diff (11/23/21 13:43) Magnesium (11/23/21 13:43) Chest 1 View, Ap/Pa Only (11/23/21 13:43) Ekg Tracing (11/23/21 13:43) Comprehensive Metabolic Panel (11/23/21 13:43) Myoglobin Serum (11/23/21 13:43) Protime With Inr (11/23/21 13:43) Partial Thromboplastin Time (11/23/21 13:43) O2 (11/23/21 13:43) Monitor-Rhythm Ecg Trace Only (11/23/21 13:43) Ed Iv/Invasive Line Start (11/23/21 13:43) Bnp Brown (11/23/21 13:43) Troponin I Brown (11/23/21 13:43) Ua Culture If Indicated (11/23/21 14:05) Aspirin Chewable Tablet (Baby Aspirin Ch (11/23/21 14:35) Vital Signs/I&O 11/23/21 11/23/21 13:40 15:41 Temp 37.2 37.2 Pulse 111 87 Resp 18 18 B/P (MAP) 159/93 (115) 160/82 Blood Pressure Mean: 115 Progress Progress Note : Time: 13:40 Progress Note Patient seen and evaluated, will give aspirin 324 mg orally, labs, EKG and chest x-ray. 1420 patient continues to only have mild symptoms if she lies flat or if palpating along the sternal border. She is taking water and herbal tea, no nausea or vomiting. Her heart rate has been in the 80s to 90s. 1515 patient lying flat, increased chest wall pain but B/P 150/90 and HR Sinus Rhythm 80-90. Pain improved when she sat up. Discussed admission for observation and repeat labs, patient declined. She reports living 2 min away with her daughter and son in law. If pain worsens or other symptoms, she will return. Encouraged appt in the next few days with Dr. Elmore. Left message at clinic to call patient for follow up. Initial ECG Impression Date: Nov 23, 2021 Initial ECG Impression Time: 13:51 Initial ECG Rate: 108 Initial ECG Rhythm: S.Tach Initial ECG Intervals: Normal Initial ECG Intervals IL 155, QRS D 78, QT 332, QTc 395. P- 1, R- 26, T 38. Initial ECG Impression: Normal Initial ECG Comparisson: No Previous ECG Available Diagnostic Imaging Diagonstic Imaging: Xray Plain Films/CT/US/NM/MRI: chest Comments NAME: ANDERSON VILLAGRAN [facility] REC#: [id number] PT STATUS: REG ER : 1950 PHYSICIAN: PREETI ANTUNEZ ADMIT DATE: 11/23/21/ER Draft Date of Exam:11/23/21 CHEST 1 VIEW, AP/PA ONLY INDICATION: Chest pain. COMPARISON: None. FINDINGS: Frontal and lateral views of the chest demonstrate normal heart size and pulmonary vascularity. The lungs are clear. There are no signs of infiltrate, pleural effusions or pneumothoraces. The visualized osseous structures show no acute abnormalities. IMPRESSION: 1. No acute process. No signs of infiltrates, effusions or pneumothoraces. Dictated on workstation # [id number] Dict: 11/23/21 1416 Trans: 11/23/21 1418 [id number] Interpreted by: DINORAH LIMA MD Electronically signed by: Reviewed: Reviewed by Me Departure Impression Primary Impression: Chest wall pain Additional Impression: Costochondral chest pain Disposition: HOME, SELF-CARE Condition: Improved Departure-Patient Inst. Decision time for Depature: 15:20 Referrals: AFSHAN ELMORE MD (PCP/Family) Primary Care Physician Patient Instructions: Chest Pain That Is Not Caused by the Heart (DC), Costochondritis (DC) Add. Discharge Instructions: Take Aspirin 81 mg daily. Apply warm, moist towels to chest. Alternate Tylenol 650 mg and Ibuprofen 600 mg every 4 hours for pain. Follow up with your Primary Care Provider in the next 203 days, sooner if symptoms are not improving or worsen. Return to the ER for chest pain, shortness of breath or new urgent healthcare needs. All discharge instructions reviewed with patient and/or family. Voiced understanding. Copy Copies To 1: AFSHAN ELMORE MD, AMY ARNP Nov 23, 2021 14:22
[2021-11-23 14:30] LABS: BACTERIA,URINE NEGATIVE /HPF; WBC,URINE 0-2 /HPF
[2021-11-23] MEDS ORDERED: ASPIRIN 81 MG CHEW (CHILDREN'S ASA) PO STA (14:35)
[2021-11-23 15:41] VITALS: BP 160/82
== END 2021-11-23 15:42 | disposition home or self-care (01) ==
LOC: EDUNIT# 13:36 → ER 13:38
DX: R07.1 Chest pain on breathing (principal); Z82.49 Family history of ischemic heart disease and other diseases of the circulatory system; Z91.040 Latex allergy status; Z28.310 Unvaccinated for COVID-19
CPT/HCPCS: 36415; 71045; 80053; 81000; 83735; 83874; 83880; 84484; 85025; 85610; 85730; 93005; 93041

== ENCOUNTER → 2022-01-03 | Outpatient (CLI) | payer MEDICARE ==
--- NOTE | 2022-01-03 16:19 | Diagnostic Imaging Report ---
INDICATION: Chronic sinusitis. TECHNIQUE: Multiple contiguous axial images were obtained through the sinuses without the use of intravenous contrast. Coronal and sagittal reformations were then performed. Auto Exposure Controls were utilized during the CT exam to meet ALARA standards for radiation dose reduction. COMPARISON: There is no prior sinus CT for comparison. FINDINGS: The maxillary sinuses appear clear. The sphenoid sinuses are clear except for some mild mucosal thickening in the left sphenoid sinus. The ethmoid air cells appear clear. The frontal sinuses are clear. There is deviation of the nasal septum toward the right side. The turbinates appear symmetric. The ostiomeatal complexes appear patent. The orbital contents are unremarkable. IMPRESSION: Mild mucosal thickening in the left sphenoid sinus. No sinus fluid levels or destructive bony lesions. Deviation of the nasal septum toward the right side. Dictated by: Dictated on workstation # [id number]
== END ==
LOC: RAD 10:58
PROVIDERS: ATTEND Otolaryngology Otolaryngology/Facial Plastic Surgery
DX: J32.3 Chronic sphenoidal sinusitis (principal)
CPT/HCPCS: 70486